=== PATIENT | male | born 1965 | race Caucasian/White ===

== ENCOUNTER 2018-08-24 11:34 | Outpatient (REF) | payer OTHER, SELFPAY ==
[2018-08-24 14:20] LABS: BUN 17 mg/dL (7-18); CREATININE 0.98 mg/dL (0.70-1.30); Calcium 9.3 mg/dL (8.5-10.1); Chloride 102 mmol/L (98-107); Glucose 138 mg/dL (70-100); Potassium 4.2 mmol/L (3.5-5.1); Sodium 138 mmol/L (136-145); Uric Acid 4.8 mg/dL (3.5-7.2)
[2018-08-24 14:30] LABS: Hemoglobin A1C 6.3 % (4.5-6.2)
== END 2018-08-24 11:54 ==
LOC: NCHCN 11:34
PROVIDERS: PCP Nurse Practitioner Family; Visit Provider Family Medicine
DX: M10.9 Gout, unspecified (principal); I10 Essential (primary) hypertension; R73.09 Other abnormal glucose
CPT/HCPCS: 80048; 83036; 84550

== ENCOUNTER 2018-08-29 16:19 | Outpatient (REF) | payer SELFPAY ==
[2018-08-31 12:38] LABS: Hepatitis B Surface Ab Positive
[2018-08-31 13:39] LABS: Measles IgG Antibody Positive; Mumps Antibody IgG Positive; Varicella IgG Antibody Positive
[2018-08-31 13:45] LABS: Rubella IgG Ab (UVM) Positive
== END 2018-08-29 16:39 ==
LOC: LBO 16:19
PROVIDERS: PCP Nurse Practitioner Family
DX: Z02.1 Encounter for pre-employment examination (principal); Z01.84 Encounter for antibody response examination
CPT/HCPCS: 36415; 86706; 86787; 86735; 86762; 86765

== ENCOUNTER 2018-09-06 14:01 | Outpatient (REF) | payer SELFPAY ==
[2018-09-09 15:33] LABS: TB Interpretation Negative (NEGAT)
== END 2018-09-06 14:21 ==
LOC: LBO 14:01
PROVIDERS: PCP Nurse Practitioner Family; Visit Provider Nurse Practitioner Family
DX: Z02.1 Encounter for pre-employment examination (principal); Z01.84 Encounter for antibody response examination
CPT/HCPCS: 36415; 86480

== ENCOUNTER 2018-10-26 23:05 | Emergency (ER) | payer OTHER, SELFPAY ==
[2018-10-26 23:09] VITALS: BP 134/81; PULSE 81; RESP 20; TEMP 36.7; O2SAT 97
--- NOTE | 2018-10-26 23:32 | W.ED.GENAD ---
Discharge Plan Disposition Patient Disposition: HOME Condition: Good Discharge Details Chief Complaint: EarProblem Clinical Impression: Sensation of fullness in both ears Primary Care Provider: Fritz Ordoñez ED Provider: Reid Bhatt Home Meds and New Rx's Prescriptions: Continued trazodone 150 MG tablet 150 mg PO PRN RF: 0 hydrochlorothiazide 25 MG tablet 25 mg PO DAILY RF: 0 atenolol 50 MG tablet 50 mg PO DAILY RF: 0 olmesartan [Benicar] 20 MG tablet 20 mg PO DAILY RF: 0 allopurinol 100 MG tablet 300 mg PO DAILY RF: 0 cetirizine-pseudoephedrine [Zyrtec-D] 5-120 mg Tablet Extended Release 12 Hr 1 tab PO DAILY RF: 0 Discharge Instructions Additional Instructions: Continue the Zyrtec-D over the weekend. If continued ear problems follow-up with primary care or with ear nose and throat, call for appointment. Return to ED for fever, headache, neurologic changes. Referrals: Paulie Bella MD [ [facility] STAFF PHYSICIAN] - Keshia Foster [ NON-[facility] STAFF PHYSICIAN] - Discharge Data Discharge Date/Time-TO BE ENTERED AT DEPARTURE: 10/26/18 23:48 Medical Decision Making Patient with complaint of feeling pressure in his ears with no real pain. Has been taking Zyrtec-D without relief. Has no neurologic findings. Does not describe vertigo. More of an ear fullness and lightheadedness. Exam is unremarkable other than some retraction and mild erythema suggesting eustachian tube dysfunction. Continue Zyrtec-D and follow-up with primary care next week if not getting better. Consider referral to ear nose and throat. Return to ED for headache, neurologic changes, fever, other concerns. HPI General Mode of arrival: ambulatory. Date/Time Provider Initiated Documentation: 10/26/18 23:16. Limitations to Documentation: no limitations. Information obtained by: patient. HPI Narrative: Patient presents to ED with complaint of ear fullness and lightheadedness. He has felt this way for about a week now. He has been taking Zyrtec D. He does not have other URI type symptoms. He denies sinus problems, cough, coryza, sore throat. He has not really complained of ear pain. He does state that his right ear feels worse than the left ear. He occasionally notices tinnitus but not persistently. He has no headache. He has no neurologic symptoms. He denies dizziness or vertigo. Related Data Home Medications Medication Instructions Recorded Confirmed atenolol 50 mg PO DAILY NS 01/27/13 10/26/18 hydrochlorothiazide 25 mg PO DAILY tab-cap NS 01/27/13 10/26/18 trazodone 150 mg PO PRN NS 01/27/13 10/26/18 olmesartan [Benicar] 20 mg PO DAILY 06/22/13 10/26/18 allopurinol 300 mg PO DAILY 07/08/15 10/26/18 cetirizine-pseudoephedrine 1 tab PO DAILY 10/26/18 10/26/18 [Zyrtec-D] Allergies Allergy/AdvReac Type Severity Reaction Status Date / Time venom-honey bee AdvReac Severe Anaphylaxsi Unverified 10/26/18 23:11 [bee venom (honey bee)] s Bleach (Sodium Hypochlorite) AdvReac Intermediate Skin Rash Unverified 10/26/18 23:11 lisinopril AdvReac Intermediate Unverified 10/26/18 23:11 tetracycline [Tetracycline] AdvReac Intermediate vomiting Unverified 10/26/18 23:11 Wine Allergy Severe Anaphalaxis Uncoded 10/26/18 23:11 General Stated Complaint: EarProblem CRICKET: 4 Review of Systems Constitutional Denies chills, Denies fever(s), Denies headache(s) and Denies malaise Eyes Denies diplopia, Denies eye discharge, Denies loss of vision and Denies eye pain ENT Reports abnormal hearing, Denies vertigo, Denies dizziness, Denies ear discharge, Denies otalgia, Denies facial pain, Denies headache(s), Denies hearing loss, Denies hoarseness, Denies mouth pain, Denies nasal congestion, Denies nasal discharge, Reports tinnitus, Denies sinus pressure and Denies sore throat Cardiovascular Denies dyspnea Respiratory Denies cough and Denies dyspnea Gastrointestinal Denies diarrhea, Denies nausea and Denies vomiting Musculoskeletal Denies abnormal gait, Denies numbness and Denies tingling Neurologic Reports abnormal hearing, Denies abnormal speech, Denies abnormal gait, Denies confusion, Denies vertigo, Denies dizziness, Denies headache(s), Denies lack of coordination, Denies focal weakness, Denies loss of vision, Denies numbness, Denies sensory deficit, Denies tingling and Denies paresthesias Psychiatric Denies confusion [facility] Medical History Gout (Chronic) HTN (hypertension) (Chronic) YESENIA (obstructive sleep apnea) (Chronic) SVT (supraventricular tachycardia) (Chronic) Surgical History Colonoscopy - MAC (Inactive 09/20/15) Previous back surgery (Inactive) Social History Smoking/Tobacco Use Status: Current every day Exam Const General: cooperative, healthy appearing and comfortable Orientation: alert and oriented x3 HENMT Head: normocephalic and atraumatic Ears: external ears normal, TM normal on the right, TM normal on the left, EAC's normal and TM abnormal erythematous (mild) on the right and retracted on the right Face and sinus: normal facial exam Mouth: oropharynx normal Throat: posterior oropharynx normal Eyes Visual Bush: normal visual bush by confrontation Pupils: PERRL EOM: EOM intact bilaterally and No nystagmus Neck Neck: normal visual inspection, no lymphadenopathy, trachea midline and supple Resp Effort & Inspection: normal respiratory effort Auscultation: clear to auscultation bilaterally Cardio Rate: regular rate Rhythm: regular rhythm Heart Sounds: S1 normal and S2 normal Neuro General: alert, oriented x3, gait normal, no focal motor deficits and CN's II-XI intact bilaterally Cranial Nerves: no nystagmus Cognition: normal cognition Speech: speech normal Gait: normal gait Sensory Exam: no sensory deficits noted Coordination: [id number] test normal Course Vital Signs Temperature 98.1 F 10/26/18 23:09 Pulse 81 10/26/18 23:09 Respiratory Rate 20 10/26/18 23:09 Blood Pressure 134/81 10/26/18 23:09 Pulse Oximetry 97 10/26/18 23:09 Temperature 98.1 F 10/26/18 23:09 Temperature Source Temporal Artery Scan 10/26/18 23:09 Pulse 81 10/26/18 23:09 Respiratory Rate 20 10/26/18 23:09 Respiratory Effort Non-Labored 10/26/18 23:09 Blood Pressure 134/81 10/26/18 23:09 Blood Pressure Position Sitting 10/26/18 23:09 Pulse Oximetry 97 10/26/18 23:09 Oxygen Delivery Method Room Air 10/26/18 23:09 Oxygen Flow Rate 0 10/26/18 23:09 Pain Level 1 10/26/18 23:13
--- NOTE | 2018-10-26 23:39 | ED.GENADUL_ITS ---
Discharge Plan Disposition Patient Disposition: HOME Condition: Good Discharge Details Chief Complaint: EarProblem Clinical Impression: Sensation of fullness in both ears Primary Care Provider: Fritz Ordoñez ED Provider: Reid Bhatt Home Meds and New Rx's Prescriptions: Continued trazodone 150 MG tablet 150 mg PO PRN RF: 0 hydrochlorothiazide 25 MG tablet 25 mg PO DAILY RF: 0 atenolol 50 MG tablet 50 mg PO DAILY RF: 0 olmesartan [Benicar] 20 MG tablet 20 mg PO DAILY RF: 0 allopurinol 100 MG tablet 300 mg PO DAILY RF: 0 cetirizine-pseudoephedrine [Zyrtec-D] 5-120 mg Tablet Extended Release 12 Hr 1 tab PO DAILY RF: 0 Discharge Instructions Additional Instructions: Continue the Zyrtec-D over the weekend. If continued ear problems follow-up with primary care or with ear nose and throat, call for appointment. Return to ED for fever, headache, neurologic changes. Referrals: Paulie Bella MD [ [facility] STAFF PHYSICIAN] - Keshia Foster [ NON-[facility] STAFF PHYSICIAN] - Discharge Data Discharge Date/Time-TO BE ENTERED AT DEPARTURE: 10/26/18 23:48 Medical Decision Making Patient with complaint of feeling pressure in his ears with no real pain. Has been taking Zyrtec-D without relief. Has no neurologic findings. Does not describe vertigo. More of an ear fullness and lightheadedness. Exam is unremarkable other than some retraction and mild erythema suggesting eustachian tube dysfunction. Continue Zyrtec-D and follow-up with primary care next week if not getting better. Consider referral to ear nose and throat. Return to ED for headache, neurologic changes, fever, other concerns. HPI General Mode of arrival: ambulatory . Date/Time Provider Initiated Documentation: 10/26/18 23:16 . Limitations to Documentation: no limitations . Information obtained by: patient . HPI Narrative: Patient presents to ED with complaint of ear fullness and lightheadedness. He has felt this way for about a week now. He has been taking Zyrtec D. He does not have other URI type symptoms. He denies sinus problems, cough, coryza, sore throat. He has not really complained of ear pain. He does state that his right ear feels worse than the left ear. He occasionally notices tinnitus but not persistently. He has no headache. He has no neurologic symptoms. He denies dizziness or vertigo. Related Data Home Medications Medication Instructions Recorded Confirmed atenolol 50 mg PO DAILY NS 01/27/13 10/26/18 hydrochlorothiazide 25 mg PO DAILY tab-cap NS 01/27/13 10/26/18 trazodone 150 mg PO PRN NS 01/27/13 10/26/18 olmesartan [Benicar] 20 mg PO DAILY 06/22/13 10/26/18 allopurinol 300 mg PO DAILY 07/08/15 10/26/18 cetirizine-pseudoephedrine 1 tab PO DAILY 10/26/18 10/26/18 [Zyrtec-D] Allergies Allergy/AdvReac Type Severity Reaction Status Date / Time venom-honey bee AdvReac Severe Anaphylaxsi Unverified 10/26/18 23:11 [bee venom (honey bee)] s Bleach (Sodium Hypochlorite) AdvReac Intermediate Skin Rash Unverified 10/26/18 23:11 lisinopril AdvReac Intermediate Unverified 10/26/18 23:11 tetracycline [Tetracycline] AdvReac Intermediate vomiting Unverified 10/26/18 23:11 Wine Allergy Severe Anaphalaxis Uncoded 10/26/18 23:11 General Stated Complaint: EarProblem CRICKET: 4 Review of Systems Constitutional Denies chills, Denies fever(s), Denies headache(s) and Denies malaise Eyes Denies diplopia, Denies eye discharge, Denies loss of vision and Denies eye pain ENT Reports abnormal hearing, Denies vertigo, Denies dizziness, Denies ear discharge, Denies otalgia, Denies facial pain, Denies headache(s), Denies hearing loss, Denies hoarseness, Denies mouth pain, Denies nasal congestion, Denies nasal discharge, Reports tinnitus, Denies sinus pressure and Denies sore throat Cardiovascular Denies dyspnea Respiratory Denies cough and Denies dyspnea Gastrointestinal Denies diarrhea, Denies nausea and Denies vomiting Musculoskeletal Denies abnormal gait, Denies numbness and Denies tingling Neurologic Reports abnormal hearing, Denies abnormal speech, Denies abnormal gait, Denies confusion, Denies vertigo, Denies dizziness, Denies headache(s), Denies lack of coordination, Denies focal weakness, Denies loss of vision, Denies numbness, Denies sensory deficit, Denies tingling and Denies paresthesias Psychiatric Denies confusion [facility] Medical History Gout (Chronic) HTN (hypertension) (Chronic) YESENIA (obstructive sleep apnea) (Chronic) SVT (supraventricular tachycardia) (Chronic) Surgical History Colonoscopy - MAC (Inactive 09/20/15) Previous back surgery (Inactive) Social History Smoking/Tobacco Use Status: Current every day Exam Const General: cooperative, healthy appearing and comfortable Orientation: alert and oriented x3 HENMT Head: normocephalic and atraumatic Ears: external ears normal, TM normal on the right, TM normal on the left, EAC's normal and TM abnormal erythematous (mild) on the right and retracted on the right Face and sinus: normal facial exam Mouth: oropharynx normal Throat: posterior oropharynx normal Eyes Visual Bush: normal visual bush by confrontation Pupils: PERRL EOM: EOM intact bilaterally and No nystagmus Neck Neck: normal visual inspection, no lymphadenopathy, trachea midline and supple Resp Effort & Inspection: normal respiratory effort Auscultation: clear to auscultation bilaterally Cardio Rate: regular rate Rhythm: regular rhythm Heart Sounds: S1 normal and S2 normal Neuro General: alert, oriented x3, gait normal, no focal motor deficits and CN's II-XI intact bilaterally Cranial Nerves: no nystagmus Cognition: normal cognition Speech: speech normal Gait: normal gait Sensory Exam: no sensory deficits noted Coordination: [id number] test normal Course Vital Signs Temperature 98.1 F 10/26/18 23:09 Pulse 81 10/26/18 23:09 Respiratory Rate 20 10/26/18 23:09 Blood Pressure 134/81 10/26/18 23:09 Pulse Oximetry 97 10/26/18 23:09 Temperature 98.1 F 10/26/18 23:09 Temperature Source Temporal Artery Scan 10/26/18 23:09 Pulse 81 10/26/18 23:09 Respiratory Rate 20 10/26/18 23:09 Respiratory Effort Non-Labored 10/26/18 23:09 Blood Pressure 134/81 10/26/18 23:09 Blood Pressure Position Sitting 10/26/18 23:09 Pulse Oximetry 97 10/26/18 23:09 Oxygen Delivery Method Room Air 10/26/18 23:09 Oxygen Flow Rate 0 10/26/18 23:09 Pain Level 1 10/26/18 23:13
[2018-10-27 00:13] VITALS: BP 134/81; PULSE 81; RESP 20; TEMP 36.7; O2SAT 97
== END 2018-10-26 23:48 | disposition home or self-care (01) ==
LOC: ER 23:50
PROVIDERS: Emergency Provider Emergency Medicine; PCP Family Medicine
DX: H93.8X3 Other specified disorders of ear, bilateral (principal)
CPT/HCPCS: 99282

== ENCOUNTER 2019-09-18 10:20 | Outpatient (REF) | payer BC, SELFPAY ==
[2019-09-18 18:44] LABS: Hemoglobin A1C 6.2 % (4.5-6.2)
[2019-09-18 18:45] LABS: Anion Gap 8.9 mmol/L (3-11); BUN 16 mg/dL (7-18); CO2 29.1 mmol/L (21.0-32.0); CREATININE 0.98 mg/dL (0.70-1.30); Calcium 9.3 mg/dL (8.5-10.1); Calculated LDL 111 mg/dL; Chloride 100 mmol/L (98-107); Cholesterol 168 mg/dL (50-200); Glucose 114 mg/dL (70-100); HDL Cholesterol 41 mg/dL (40-60); Potassium 4.3 mmol/L (3.5-5.1); Sodium 138 mmol/L (136-145); Triglyceride 84 mg/dL (30-150)
== END 2019-09-18 10:40 ==
LOC: NCHCN 10:20
PROVIDERS: PCP Family Medicine; Visit Provider Family Medicine
DX: I10 Essential (primary) hypertension (principal)
CPT/HCPCS: 80048; 80061; 83036

== ENCOUNTER 2023-02-12 11:46 | Outpatient (CLI) | payer BC, SELFPAY ==
--- NOTE | 2023-02-12 | DI.RAD_ITS ---
Exam(s) XR WRIST RT COMPL NAVICULAR EXAM: XR WRIST RT COMPL NAVICULAR CLINICAL HISTORY: RT WRIST PAIN, M25.531, S/P FALL 2 WEEKS AGO, CONTINUED PAIN. TECHNIQUE: 2D digital imaging was performed of the right wrist. Four views were obtained. Scaphoid, PA, lateral and oblique views were obtained. COMPARISON: No exams were available for comparison FINDINGS: BONES: No acute fracture is present. No bony destructive lesion is seen. There is a tiny 2 mm well-ci rcumscribed density at the dorsal aspect of the wrist which appears chronic. JOINTS: The carpal bones are normally aligned. SOFT TISSUE: Normal. IMPRESSION: No acute or healing fracture or dislocation is present. DATA REPOSITORY: RADIATION DOSE DELIVERED:
== END 2023-02-12 12:06 ==
LOC: DI 11:48
PROVIDERS: PCP Family Medicine; Visit Provider Physician Assistant Medical
DX: M25.531 Pain in right wrist (principal)
CPT/HCPCS: 73110

== ENCOUNTER 2023-03-09 09:30 | Outpatient (CLI) | payer BC, SELFPAY ==
--- NOTE | 2023-03-09 09:00 | DI.RAD_ITS ---
Exam(s) XR WRIST RT LIMITED EXAM: XR WRIST RT LIMITED CLINICAL HISTORY: wrist pain. TECHNIQUE: 2D digital imaging was performed. COMPARISON: CR XR WRIST RT COMPL NAVICULAR from 02/12/2023 FINDINGS: Two views: No evidence of acute fracture nor dislocation nor significant ulnar variance. Scapholunate distance is upper normal. No scaphoid or lunate fracture nor evidence of avascular necrosis. On the lateral view there is a tiny corticated accessory ossicle noted dorsally at the carpal level, unchanged. Also in the lateral view, dorsally, there is linear lucency in the base of 1 of the metacarpals at th is level. This is not evident on AP view. IMPRESSION: As above. Correlation with site of tenderness is recommended. DATA REPOSITORY: RADIATION DOSE DELIVERED:
== END 2023-03-09 09:31 | disposition home or self-care (01) ==
LOC: DIORS 09:31
PROVIDERS: PCP Family Medicine; Referring Provider Family Medicine; Visit Provider Student in an Organized Health Care Education/Training Program
DX: M25.339 Other instability, unspecified wrist (principal); S62.009A Unspecified fracture of navicular [scaphoid] bone of unspecified wrist, initial encounter for closed fracture
CPT/HCPCS: 73100